=== PATIENT | male | born 1960 | race Two or more races ===

== ENCOUNTER 2024-02-29 10:00 | Outpatient (RCR) | payer MEDICAID, SELFPAY ==
--- NOTE | 2024-02-13 10:13 | PT.OIERPT ---
PT OP Initial Eval Patient Information Outpatient Physical Therapy Treatment Date: 02/13/24 Visit Reasons: RT shoulder rotator cuff Medical Diagnosis: M25.511 Treatment Dx #1: R shoulder pain Treatment Dx #2: Dec R shoulder ROM Start of Care: 02/13/24 Date of Onset: 12/05/23 DOS Smoking Status Smoking Status: Never smoker Initial Assessment Subjective: Pt is 64 yr old scottish speaking male s/p R RCR in November. Pt reports pain with reaching up and lifting things. 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 PMH: HTN, cardiogenic shock, CAD, high cholesterol, DM? Pt goal: not sure Objective: R shoulder AROM: PROM: FF: 90 deg 115 with pain Abd: 90 deg 105 with pain Erot: 95 deg Strength: NT but estimated to be 3-/5 in all planes Assessment: Pt presentation consistent with post op RCR with decreased ROM, strength and function with reaching. Pt has moderate tissue irritability with A/PROM today and requires skilled therapy in order to decrease pain and improve ROM and strength and has fair rehab potential. Eval followed by [facility]. [facility] Goals 1. Ind with [facility] 2. Improved PROM of R shoulder to full 3. Improved AROM of R shoulder to at least 145 deg FF and 130 abduction, ER to 90 deg 4. Pt will reach OH x10 with <=3/10 pain Treatment Plan 1. Manual therapy ? 2. Therex ? 3. Modalities as indicated, moist heat, ice, estim Frequency and Duration: 2x a week for 8 weeks Certification Dates: 02/13/24 to 05/11/24 Procedure Charges OP PT Eval Mod Complex 30 minutes: Yes
--- NOTE | 2024-02-15 17:34 | PT.ODAYNRPT ---
PT Outpatient Daily Note OP Daily Note Outpatient Physical Therapy Treatment Date: 02/15/24 Visit Reasons: RT shoulder rotator cuff Subjective: pt. report pain R shoulder when lifting items at home Objective: see ther-ex for flowsheet Assessment: JACOBO ther-ex decreased pain R shoulder Plan: continue PT per POC to improve R shoulder pain and ROM Length of Time (minutes) of Treatment: 30 Minutes Procedure Charges Therapeutic Exercise 30 minutes: Yes
--- NOTE | 2024-02-20 18:02 | PT.ODAYNRPT ---
PT Outpatient Daily Note OP Daily Note Outpatient Physical Therapy Treatment Date: 02/20/24 Visit Reasons: RT shoulder rotator cuff Subjective: pt. reports ther-ex helped with improvements in AROM R shoulder with decreasing pain Objective: see flowsheet for ther-ex Assessment: Improved R shoulder AAROM and AROM since last visit. Plan: continue PT per POC to improve R shoulder pain and ROM Length of Time (minutes) of Treatment: 30 Minutes Procedure Charges Therapeutic Exercise 30 minutes: Yes
--- NOTE | 2024-02-22 16:31 | PT.ODAYNRPT ---
PT Outpatient Daily Note OP Daily Note Outpatient Physical Therapy Treatment Date: 02/22/24 Visit Reasons: RT shoulder rotator cuff Subjective: pt. reports R shoulder AROM has increased with therapy Objective: see flowsheet for ther-ex Assessment: R shoulder AROM improved with ther-ex Plan: continue PT per POC Length of Time (minutes) of Treatment: 30 Minutes Procedure Charges Therapeutic Exercise 30 minutes: Yes
--- NOTE | 2024-02-27 15:57 | PT.ODAYNRPT ---
PT Outpatient Daily Note OP Daily Note Outpatient Physical Therapy Treatment Date: 02/27/24 Visit Reasons: RT shoulder rotator cuff Subjective: Pt reports R shoulder is doing ok, no complaints. Objective: Please see flow sheet for ther ex list. Assessment: Added light strengthening interventions, verbal and tactile cues to achieve desired motion. Plan: Continue with POC. Length of Time (minutes) of Treatment: 30 Minutes Procedure Charges Therapeutic Exercise 30 minutes: Yes
--- NOTE | 2024-02-29 15:59 | PT.ODAYNRPT ---
PT Outpatient Daily Note OP Daily Note Outpatient Physical Therapy Treatment Date: 02/29/24 Visit Reasons: RT shoulder rotator cuff Subjective: Pt. reports R shoulder AROM has increased with therapy Objective: see flowsheet for ther-ex Assessment: Good progress with ROM goals. R shoulder AROM improved in all planes to almost full into FF and abduction in supine and sidelying with low pain Plan: continue PT per POC Length of Time (minutes) of Treatment: 30 Minutes Procedure Charges Therapeutic Exercise 30 minutes: Yes
== END 2024-03-12 23:59 | disposition home or self-care (01) ==
LOC: CPTX 10:00
PROVIDERS: PCP Orthopaedic Surgery; Referring Provider Orthopaedic Surgery; Visit Provider Orthopaedic Surgery
DX: M25.511 Pain in right shoulder (principal); Z98.890 Other specified postprocedural states
CPT/HCPCS: 97110; 97162

== ENCOUNTER 2024-04-11 11:00 | Outpatient (RCR) | payer MEDICAID, SELFPAY ==
--- NOTE | 2024-03-14 10:35 | PT.ODAYNRPT ---
PT Outpatient Daily Note OP Daily Note Outpatient Physical Therapy Treatment Date: 03/14/24 Visit Reasons: Rotator cuff surgery Subjective: Pt reports progress with R shoulder, notices flexibility improvement. Objective: Please see flow sheet for ther ex list. Assessment: Pt ROM continues to improve indicating progress. Continues shoulder strengthening per post op protocol. Plan: Continue with pOC. Length of Time (minutes) of Treatment: 30 Minutes Procedure Charges Therapeutic Exercise 30 minutes: Yes
--- NOTE | 2024-03-19 11:48 | PT.ODAYNRPT ---
PT Outpatient Daily Note OP Daily Note Outpatient Physical Therapy Treatment Date: 03/19/24 Visit Reasons: Rotator cuff surgery Subjective: Pt reports shoulder is doing better, mobility continues to improve. Objective: Please see flow sheet for ther ex list. Assessment: Pt demonstrates improved ROM, progressing strengthening as per post op protocol. Plan: Continue with POC. Length of Time (minutes) of Treatment: 30 Minutes Procedure Charges Therapeutic Exercise 30 minutes: Yes
--- NOTE | 2024-03-26 11:42 | PT.ODAYNRPT ---
PT Outpatient Daily Note OP Daily Note Outpatient Physical Therapy Treatment Date: 03/26/24 Visit Reasons: Rotator cuff surgery Subjective: Pt reports shoulder is doing better. Objective: Please see flow sheet for ther ex list. Assessment: Progressing strengthening interventions per post op protocol. Plan: Continue with POC. Length of Time (minutes) of Treatment: 30 Minutes Procedure Charges Therapeutic Exercise 30 minutes: Yes
--- NOTE | 2024-04-03 11:50 | PT.ODAYNRPT ---
PT Outpatient Daily Note OP Daily Note Outpatient Physical Therapy Treatment Date: 04/03/24 Visit Reasons: Rotator cuff surgery Subjective: Better OH reach and strength of R shoulder Objective: See F/S for therex AROM: FF: full Abd: full Assessment: Good progress with goals with improved ROM to full FF and abduction. Pt has transitioned to light resisted strengthening therex well without significant pain or soreness. Plan: Continue per POC Length of Time (minutes) of Treatment: 30 Minutes Procedure Charges Therapeutic Exercise 30 minutes: Yes
--- NOTE | 2024-04-11 11:36 | PT.ODAYNRPT ---
PT Outpatient Daily Note OP Daily Note Outpatient Physical Therapy Treatment Date: 04/11/24 Visit Reasons: Rotator cuff surgery Subjective: Pt reports shoulder is progressing. Objective: Please see flow sheet for ther ex list. Assessment: Pt ROm continues to improve allowing for interventions progression and focus on restoring strength. Plan: Continue with POC. Length of Time (minutes) of Treatment: 30 Minutes Procedure Charges Therapeutic Exercise 30 minutes: Yes
== END 2024-04-12 23:59 | disposition home or self-care (01) ==
LOC: CPTX 11:00
PROVIDERS: PCP Orthopaedic Surgery; Referring Provider Orthopaedic Surgery; Visit Provider Orthopaedic Surgery
DX: M25.511 Pain in right shoulder (principal); Z98.890 Other specified postprocedural states
CPT/HCPCS: 97110

== ENCOUNTER 2024-04-23 11:00 | Outpatient (RCR) | payer MEDICAID, SELFPAY ==
--- NOTE | 2024-04-16 13:11 | PT.ODAYNRPT ---
PT Outpatient Daily Note OP Daily Note Outpatient Physical Therapy Treatment Date: 04/16/24 Visit Reasons: Rotator cuff surgery Subjective: Pt reports shoulder is progressing. Objective: See F/S for therex Assessment: Pt ROM continues to improve allowing for interventions progression and focus on restoring strength. Plan: Reassess Length of Time (minutes) of Treatment: 30 Minutes Procedure Charges Therapeutic Exercise 30 minutes: Yes
--- NOTE | 2024-04-23 14:29 | PT.ODS1RPT ---
PT OP Progress/Discharge Note Date of Service: 04/23/24 Progress Note/DC Note Progress Note/Discharge Note: DC Note Patient Information Visit Reasons: Rotator cuff surgery Service Continue Service or Discharge: Discharge Discharge Date: 04/23/24 Status Subjective: Overall better strength and ROM. Pt is ready to D/C from therapy Objective: R shoulder AROM: Strength: FF: 145 deg 4/5 ABd: 150 deg 4/5 ER: 85 deg HBB: L5 Assessment: Pt has attended 12/12 Rx sessions with good progress to meet therapy goals. He has surpassed the AROM goals and can reach OH x10 to meet that goal. Pt is independent with [facility] to meet that goal. Plan: D/C with [facility] Procedure Charges Therapeutic Exercise 30 minutes: Yes
== END 2024-05-10 23:59 | disposition home or self-care (01) ==
LOC: CPTX 11:00
PROVIDERS: PCP Orthopaedic Surgery; Referring Provider Orthopaedic Surgery; Visit Provider Orthopaedic Surgery
DX: M25.511 Pain in right shoulder (principal); Z98.890 Other specified postprocedural states; I10 Essential (primary) hypertension
CPT/HCPCS: 97110